=== PATIENT | female | born 1985 | race American Indian/Alaskan Native ===

== ENCOUNTER 2019-09-03 12:08 | Outpatient (CLI) | payer MEDICAID ==
[2019-09-04 12:10] VITALS: BP 141/100
== END 2019-09-03 15:05 | disposition home or self-care (01) ==
LOC: LAB 12:08 → APU 14:55 → LAB 15:05
PROVIDERS: ATTEND Obstetrics & Gynecology
DX: O26.893 Other specified pregnancy related conditions, third trimester (principal); Z3A.28 28 weeks gestation of pregnancy; Z67.21 Type B blood, Rh negative
CPT/HCPCS: 86850; 86900; 86901; 96372; J2790